=== PATIENT | male | born 1975 | race Caucasian/White ===

== ENCOUNTER 2018-02-21 08:46 | Emergency (ER) | payer MEDICAID ==
[~2018-02-21] VITALS: Ht 175.3 cm; Wt 91.0 kg
[2018-02-21] MEDS ORDERED: SODIUM CHLORIDE 0.9% 1,000 ML IV ONE ×3 (08:55→19:15)
[2018-02-21] MEDS ORDERED: ONDANSETRON HCL 4MG/2ML VIAL IV ONE (09:00)
[2018-02-21 09:35] LABS: HEMATOCRIT. 48.6 % (42.0-52.0); HEMOGLOBIN. 16.6 g/dL (14.0-18.0); MEAN CORPUSCULAR HEMOGLOBIN 33.5 pg (28.0-32.0); MEAN CORPUSCULAR VOLUME 97.7 fL (80.0-94.0); MEAN PLATELET VOLUME 7.3 fl (7.4-10.4); PLATELET 305 x1000/uL (130-400); RED BLOOD CELL COUNT 4.97 mill/uL (4.7-6.1)
[2018-02-21 09:41] LABS: CHLORIDE 103 mEq/L (98-107)
[2018-02-21 09:58] LABS: INR 1.1; PARTIAL THROMBOPLASTIN TIME 25.8 sec (23.4-31.0); PROTHROMBIN TIME 11.8 sec (9.4-11.6)
[2018-02-21 10:24] LABS: PLATELET ESTIMATE NORMAL
[2018-02-21] MEDS ORDERED: FOLIC ACID 1 MG, THIAMINE HCL 100 MG, MVI, ADULT NO.1 10 ML in DEXTROSE 5% WATER 1,000 ML IV ONE ×4 (10:30)
[2018-02-21 10:32] LABS: ETHANOL BLOOD 374 mg/dL
[2018-02-21 11:20] LABS: *AMPHETAMINES SCREEN URINE NEGATIVE (NEGATIVE); *BARBITURATES SCREEN URINE NEGATIVE (NEGATIVE); *BENZODIAZEPINES SCREEN URINE NEGATIVE (NEGATIVE); *COCAINE SCREEN URINE NEGATIVE (NEGATIVE); CANNABINOID URINE SCREEN NEGATIVE (NEGATIVE); METHADONE URINE SCREEN NEGATIVE (NEGATIVE); OPIATES URINE SCREEN NEGATIVE (NEGATIVE); PHENCYCLIDINE URINE SCREEN NEGATIVE (NEGATIVE)
[2018-02-21] MEDS ORDERED: WATER IV NR ×3 (11:30→16:30)
[2018-02-21] MEDS ORDERED: DEXT 5% IV NR ×2 (11:30→16:30)
[2018-02-21] MEDS ORDERED: ACETYLCYSTEINE IV NR ×4 (11:30→16:30)
[2018-02-21] MEDS ORDERED: SODIUM CHLORIDE 0.45% IV NR (12:30)
[2018-02-21] MEDS ORDERED: MIDAZOLAM HCL 2 MG/2 ML VIAL IV ONE (13:00)
[2018-02-21 14:30] LABS: CHLORIDE 104 mEq/L (98-107)
[2018-02-21 14:35] LABS: ETHANOL BLOOD 262 mg/dL
[2018-02-21] MEDS ORDERED: HYDROXYZINE 25MG TABLET PO ONE (16:15)
[2018-02-21] MEDS ORDERED: DEXTROSE 5% IV NR (16:30)
[2018-02-21] MEDS ORDERED: LORAZEPAM 2MG/ML CPJ IV ONE (19:15)
[2018-02-21 22:10] VITALS: BP 156/82
== END 2018-02-21 23:05 | disposition home or self-care (01) ==
LOC: ER 11:58
DX: T39.1X1A Poisoning by 4-Aminophenol derivatives, accidental (unintentional), initial encounter (principal); G92 Toxic encephalopathy; F10.229 Alcohol dependence with intoxication, unspecified; R94.5 Abnormal results of liver function studies; Y90.8 Blood alcohol level of 240 mg/100 ml or more; Y92.89 Other specified places as the place of occurrence of the external cause
CPT/HCPCS: 36415; 80053; 80305; 80307; 80329; 83735; 85025; 85610; 85730; 93005; 96361; 96365; 96366; 96368; 96375; 99291; G0482; J0132; J2060; J2250; J2405; J3411; J3490; J7030; J7070; Z7610; J7060